=== PATIENT | male | born 1980 ===

== ENCOUNTER 2018-03-13 07:45 | Emergency (ER) | payer BC ==
[2018-03-13 07:49] VITALS: BMI 42.5
[2018-03-13] MEDS ORDERED: Sodium Chloride 0.9% 1,000 ML IV ONE (08:01)
--- NOTE | 2018-03-13 08:04 | C.PDOC ---
History Of Present Illness 37 yo male with htn and hx right kidney stone about 7 yrs ago c/o sudden onset right flank pain radiating to groin with intermittent nausea, one episode of vomiting. +dysuria. Time Seen by Provider: 03/13/18 07:52 Chief Complaint (Nursing): Male Genitourinary History Per: Patient History/Exam Limitations: no limitations Onset/Duration Of Symptoms: Hrs (4) Current Symptoms Are (Timing): Worse Severity: Severe Quality Of Discomfort: "Pain" Associated Symptoms: Nausea, Vomiting, Urinary Symptoms. denies: Fever, Chills Alleviating Factors: None Past Medical History Reviewed: Historical Data, Nursing Documentation, Vital Signs Vital Signs: Last Vital Signs Temp 99.4 F 03/13/18 10:12 Pulse 68 03/13/18 10:12 Resp 18 03/13/18 10:12 BP 155/88 H 03/13/18 10:12 Pulse Ox 99 03/13/18 10:12 - Medical History PMH: HTN, Kidney Stones, Sleep Apnea Family History: States: Unknown Family Hx - Social History Hx Alcohol Use: Yes (social) Hx Substance Use: No - Immunization History Hx Tetanus Toxoid Vaccination: No Hx Influenza Vaccination: No Hx Pneumococcal Vaccination: No Review Of Systems Constitutional: Negative for: Fever, Chills Cardiovascular: Negative for: Chest Pain Respiratory: Negative for: Cough Gastrointestinal: Positive for: Nausea, Vomiting, Abdominal Pain, Other (flank pain) Genitourinary: Positive for: Dysuria. Negative for: Hematuria Skin: Negative for: Rash Neurological: Negative for: Weakness, Numbness Physical Exam - Physical Exam Appears: Non-toxic, In Acute Distress (from pain) Skin: Warm, Dry Head: Atraumatic, Normacephalic Eye(s): bilateral: Normal Inspection Chest: No Deformity, No Tenderness Cardiovascular: Rhythm Regular, No Murmur Respiratory: No Decreased Breath Sounds, No Wheezing Gastrointestinal/Abdominal: Bowel Sounds, Soft, Tenderness (right flank and rlq tender), No Distention, No Guarding, No Rebound Back: CVA Tenderness (right side) Neurological/Psych: Oriented x3, Normal Speech, Normal Cognition ED Course And Treatment - Laboratory Results Result Diagrams: 03/13/18 08:07 03/13/18 08:07 - Physician Consult Information Physician Contacted: Raúl Grigsby Outcome Of Conversation: pt may go home and take abx and flomax or be admitted for stent procedure Medical Decision Making Medical Decision Making: Case discussed with Dr. Grigsby: pt may go home and take abx and flomax or be admitted for stent procedure. Pt states he prefers to go home, BP was re- checked and is still high. Pt re-took his own BP medication in ED. Will re- check soon. 37 y/o male with hx kidney stones with sudden onset right flank roque and urinary symptms- eval for stone, non con ct scan, labs, ua. toradol, re-eval 1021 bp decreased 155/88, will d/c with flomax and macrobid, strain urine and f /u Dr Grigsby next week/ Disposition Discussed With Dr.: Raúl Grigsby Doctor Will See Patient In The: Office Counseled Patient/Family Regarding: Studies Performed, Diagnosis, Need For Followup, Rx Given - Disposition Referrals: Raúl Grigsby MD [Staff Provider] - Disposition: HOME/ ROUTINE Disposition Time: 10:22 Condition: IMPROVED Additional Instructions: Drink increased fluids. Take ibuprofen 600 mg by mouth every 6 hours; if pain is severe, you can take a Tylenol with codeine every [address] machinery if taking codeine. Strain all urine and keep stone when it passes. Take antibiotics until completed. Return to ER for worsening pain. fever. vomiting or any other cncerns. Follow up with Dr Grigsby, call for an appointment. Prescriptions: Acetaminophen with Codeine [Tylenol with Codeine #3 Tablet] 1 each PO Q4 PRN #8 tablet PRN Reason: Pain, Severe (8-10) Ibuprofen [Motrin] 600 mg PO TID #30 tab Nitrofurantoin Macrocrystals [Macrobid] 100 mg PO BID #14 cap Tamsulosin [Flomax] 0.4 mg PO DAILY #7 cap Instructions: Kidney Stones (DC), Renal Colic (DC) Forms: General Discharge Instructions, [facility] (Ch[place]an), Work Excuse - Clinical Impression Clinical Impression: Ureteral stone with hydronephrosis
[2018-03-13 08:16] LABS: BASO # 0.1 K/uL (0.0-0.2); BASO % 0.6 % (0.0-2.0); EOS # 0.1 K/uL (0.0-0.7); EOS % 0.8 % (0.0-4.0); HEMOGLOBIN 15.3 g/dL (12.0-18.0); LYMPH # 1.9 K/uL (1.0-4.3); LYMPH % 15.2 % (20.0-40.0); MEAN CELL VOLUME 86.1 fL (80.0-94.0); MEAN CORPUSCULAR HEMOGLOBIN 29.1 pg (27.0-31.0); MEAN CORPUSCULAR HGB CONC 33.8 g/dL (33.0-37.0); MEAN PLATELET VOLUME 10.6 fL (7.2-11.7); MONO # 0.7 K/uL (0.0-0.8); MONO % 5.1 % (0.0-10.0); NEUT % 78.3 % (50.0-75.0); RBC 5.27 Mil/uL (4.40-5.90); RED CELL DISTRIBUTION WIDTH 13.5 % (11.5-14.5); WHITE BLOOD COUNT 12.7 K/uL (4.8-10.8)
[2018-03-13 08:27] LABS: ALB/GLOB RATIO 1.5 (1.0-2.1); ALBUMIN 5.1 g/dL (3.5-5.0); ALT/SGPT 75 U/L (21-72); AST/SGOT 43 U/L (17-59); BLOOD UREA NITROGEN 10 mg/dL (9-20); CALCIUM 9.7 mg/dl (8.6-10.4); GFR NON-AFRICAN AMERICAN > 60
[2018-03-13 08:40] LABS: URINE AMORPHOUS SEDIMENT FEW /ul (<OCC); URINE BACTERIA RARE (<OCC); URINE BILIRUBIN NEGATIVE (NEGATIVE); URINE BLOOD 2+ (NEGATIVE); URINE CLARITY Hazy (Clear); URINE COLOR Yellow (YELLOW); URINE GLUCOSE (UA) NORMAL (Normal); URINE LEUKOCYTE ESTERASE NEG Leu/uL (Negative); URINE PROTEIN 1+ mg/dL (NEGATIVE); URINE UROBILINOGEN NORMAL mg/dL (0.2-1.0)
--- NOTE | 2018-03-13 09:02 | CT ---
Date of service: 03/13/2018 PROCEDURE: CT Abdomen and Pelvis without intravenous contrast HISTORY: Right flank pain. History of calculi. COMPARISON: None available. TECHNIQUE: Multiple contiguous axial images were performed through the abdomen and pelvis without the use of intravenous contrast. Subsequently, sagittal and coronal reformatted images were obtained. Radiation dose: Total exam DLP = 1217 mGy-cm. This CT exam was performed using one or more of the following dose reduction techniques: Automated exposure control, adjustment of the mA and/or kV according to patient size, and/or use of iterative reconstruction technique. FINDINGS: LOWER THORAX: Bibasilar atelectasis. Additional atelectasis in the lingula. LIVER: Fatty infiltration of the liver. Suggestion of increased attenuation adjacent to the gallbladder fossa which may represent focal fatty sparing. GALLBLADDER AND BILE DUCTS: Question sludge in the gallbladder. PANCREAS: Unremarkable. No gross lesion or ductal dilatation. SPLEEN: Unremarkable. ADRENALS: Unremarkable. No mass. KIDNEYS AND URETERS: Moderate right renal hydroureteronephrosis with 6 millimeter calculus seen at the right ureterovesicular junction/posterior aspect of the urinary bladder. Additional punctate 2 millimeter calculus in the lower pole of the right kidney. 2 millimeter nonobstructive calculus in the midpole of the left kidney as well as an additional 2 millimeter nonobstructing calculus in the lower pole of the left kidney. VASCULATURE: Unremarkable. No aortic aneurysm. BOWEL: Unremarkable. No obstruction. No gross mural thickening. Under distended left hemicolon. APPENDIX: Not well visualized. PERITONEUM: Unremarkable. No free fluid. No free air. LYMPH NODES: Unremarkable. No enlarged lymph nodes. BLADDER: Unremarkable. REPRODUCTIVE: Unremarkable. BONES: Degenerative changes in the spine. Loss of height of the inferior endplate of the T11 vertebral body with prominent endplate sclerosis. Multilevel anterior osteophytosis throughout the thoracic and upper lumbar spine. OTHER FINDINGS: None. IMPRESSION: Moderate right renal hydroureteronephrosis with 6 millimeter calculus seen at the right ureterovesicular junction/posterior aspect of the urinary bladder. Additional punctate 2 millimeter calculus in the lower pole of the right kidney. Additional findings as above.
[2018-03-13 09:22] VITALS: RESP 18
[2018-03-13 10:13] VITALS: BP 155/88; PULSE 68; TEMP 99.4; O2SAT 99
== END 2018-03-13 10:38 | disposition home or self-care (01) ==
LOC: C.ER 07:45
DX: N13.2 Hydronephrosis with renal and ureteral calculous obstruction (principal); Z87.442 Personal history of urinary calculi
CPT/HCPCS: 74176; 80053; 81001; 85025; 87086; 96361; 96374; 99285; J1885; J7030